=== PATIENT | male | born 1955 | race Caucasian/White ===

== ENCOUNTER 2016-10-31 14:59 | Emergency (ER) | payer OTHER ==
[2016-10-31 15:39] VITALS: BP 149/79
[2016-10-31] MEDS ORDERED: Lidocaine 2% PF * 5 ML VIAL ONE (16:36)
[2016-10-31] MEDS ORDERED: Tetan/Diph/Pertus SYR(Tdap)* 0.5 ML SYR(BOOSTRIX) use SYR IM ONE (16:54)
--- NOTE | 2016-10-31 16:59 | UC ---
General HPI - HPI Summary HPI Summary: The patient comes in today for: 1. Fish hook in the right index finger. Onset: 3 hours ago. Palliative/provocative: Movement makes it worse. Quality: Sharp Region: Right index finger--distal phalanx. Severity: 310 Time: Constant. Associated symptoms: Event; He was making a fly at home when he accidentally got the hook stuck in his finger (distal phalanx of the right index finger). He was not able to move it himself. Tetanus: 10 year or more. The fly was "fresh out of the box." * - History of Current Complaint Chief Complaint: UCForeignBody Stated Complaint: FISH HOOK IN FINGER Time Seen by Provider: 10/31/16 16:51 Hx Obtained From: Patient - Allergy/Home Medications Allergies/Adverse Reactions: Allergies Allergy/AdvReac Type Severity Reaction Status Date / Time No Known Allergies Allergy Verified 10/31/16 15:38 Home Medications: Home Medications Aspirin TAB* [Aspirin 325 MG TAB*] 2 tab PO PRN 10/31/16 [History] PMH/Surg Hx/FS Hx/Imm Hx Previously Healthy: Yes Endocrine History Of: Denies: Diabetes, Thyroid Disease, Hyperthyroidism, Hypothyroidism, Dyslipidemia Cardiovascular History Of: Denies: Cardiac Disorders, Hypertension, Pacemaker/ICD, Myocardial Infarction , Congestive Heart Failure, Atrial Fibrillation, Deep Vein Thrombosis, Bleeding Disorders Respiratory History Of: Denies: COPD, Asthma, Bronchitis, Pneumonia, Pulmonary Embolism GI/ History Of: Denies: Gastroesophageal Reflux, Ulcer, Gastrointestinal Bleed, Gall Bladder Disease, Kidney Stones, Diverticulitis, Renal Disease, Urosepsis Neurological History Of: Denies: TIA, CVA, Dementia, Seizures, Migraine Psychological History Of: Denies: Anxiety, Depression, Bipolar Disorder, Schizophrenia, Post Traumatic Stress Disorder Cancer History Of: Denies: Lung Cancer, Colorectal Cancer, Breast Cancer, Prostate Cancer, Cervical Cancer Other History Of: Negative For: HIV, Hepatitis B, Hepatitis C, Anticoagulant Therapy - Surgical History Surgical History: None - Family History Known Family History: Positive: Hypertension Negative: Diabetes - Social History Occupation: Employed Full-time Alcohol Use: Weekly Alcohol Amount: 1-2 times a week Substance Use Type: Marijuana Substance Use Comment - Amount & Last Used: occasional Smoking Status (MU): Never Smoked Tobacco - Immunization History Most Recent Tetanus Shot: Unknown Review of Systems Constitutional: Negative Skin: Negative Eyes: Negative ENT: Negative Respiratory: Negative Cardiovascular: Negative Gastrointestinal: Negative Genitourinary: Negative All Other Systems Reviewed And Are Negative: Yes Physical Exam Triage Information Reviewed: Yes Appearance: Well-Appearing, No Pain Distress, Well-Nourished Vital Signs: Initial Vital Signs Temp 98.3 F 10/31/16 15:33 Pulse 69 10/31/16 15:33 Resp 18 10/31/16 15:33 BP 149/79 10/31/16 15:33 Pulse Ox 98 10/31/16 15:33 Vital Signs Reviewed: Yes Eyes: Positive: Conjunctiva Clear. Negative: Discharge ENT: Positive: Hearing grossly normal. Negative: Pharyngeal erythema, Nasal congestion, Nasal drainage, TM bulging, TM dull, TM red, Tonsillar swelling, Tonsillar exudate Dental: Negative: Gross Decay/Caries @, Dental Fracture @ Neck: Positive: Supple, Nontender, No Lymphadenopathy. Negative: Nuchal Rigidity Respiratory: Positive: Chest non-tender, Lungs clear, No respiratory distress, No accessory muscle use. Negative: Crackles, Wheezing Cardiovascular: Positive: RRR, No Murmur Abdomen Description: Positive: Nontender, No Organomegaly, Soft. Negative: Distended, Guarding Musculoskeletal: Positive: Strength Intact, ROM Intact, No Edema Neurological: Positive: Alert, Muscle Tone Normal Psychological: Positive: Age Appropriate Behavior, Consolable Skin: Positive: Other - Patient had fish hook partially impaled in the distal phalanx of his right index finger.. Negative: rashes, breakdown Course/Dx - Course Course Of Treatment: After numbing the right distal index finger phalanx, with 2 % lidocaine without epinephrine, the fishhook was pushed through and removed in its entirety. Hemostasis was maintained. Tetanus shot given. - Differential Dx - Multi-Symptom Provider Diagnoses: Hypertension. Fish hook of the right index finger removed. Discharge - Discharge Plan Condition: Stable Disposition: HOME Patient Education Materials: Soft Tissue Foreign Body (ED) Referrals: No Primary Care Phys,NOPCP [Primary Care Provider] - If Needed (Please see your primary care provider as he or she has previously recommended. If you have any problems and can't get in timely, you can come back to see us.) [facility]IAN REFERRAL [Outside] Additional Instructions: Inspect the affected finger daily watching for increased redness, swelling, tenderness or discharge. Keep the finger clean and re-bandage every day until healed.
== END 2016-10-31 17:31 | disposition home or self-care (01) ==
LOC: UCEAST 14:59
DX: S61.240A Puncture wound with foreign body of right index finger without damage to nail, initial encounter (principal); W45.8XXA Other foreign body or object entering through skin, initial encounter; Y93.9 Activity, unspecified; Y99.9 Unspecified external cause status; I10 Essential (primary) hypertension
CPT/HCPCS: 90471; 90715; 99201; G0463